=== PATIENT | male | born 1985 | race Caucasian/White ===

== ENCOUNTER 2018-01-24 22:04 | Emergency (ER) | payer OTHER ==
--- NOTE | 2018-01-24 22:16 | EDPHY ---
H & P Stated Complaint: Work inj, L arm laceration, hit with hose Time Seen by Provider: 01/24/18 22:15 HPI/ROS: HPI: This is a 33-year-old male who presents with Chief Complaint: Work injury, L arm laceration, hit with hose Location: Left arm Quality: Injury hit with air hose Duration: Prior to arrival Signs and Symptoms: No bleeding, no radiation, no numbness, no weakness, no tingling, no incontinence, no decreased range of motion, no swelling, + pain, no fever Timing: Acute Severity: Moderate Context: Patient is right-hand dominant, was at work using air hose when he lost control of it and it sprayed his left arm. He is complaining of pain that is moderate and nonradiating in nature. He has not done any local wound care. Denies any radiation, weakness, decreased range of motion. Reports tetanus is current Modifying Factors: Comment: ROS: A comprehensive 10 system review of systems is otherwise negative aside from elements mentioned in the history of present illness. MEDICAL/SURGICAL/SOCIAL HISTORY: Medical history: Generally healthy. Does not take any regular medications. Surgical history: Denies Social history: Never smoked. Employed. CONSTITUTIONAL: Polite and cooperative adult white male, awake and alert, no obvious distress HEENT: Atraumatic and normocephalic. NECK: supple EXTREMITIES: 2/2 pulses, strength 5/5, left upper and lower arm shows conflict went to superficial abrasions covering with only superficial break in the skin; no active bleeding. DIP/PIP/MCP flexion/extension intact with good light touch sensation. no deformities, no clubbing, no cyanosis or edema. NEUROLOGICAL: no focal neuro deficits. GCS 15. Light touch sensation intact. SKIN: Warm and dry, no erythema. no rash. Good capillary refill. Source: Patient Exam Limitations: No limitations - Personal History Current Tetanus Diphtheria and Acellular Pertussis (TDAP): Yes - Medical/Surgical History Hx Asthma: No Hx Chronic Respiratory Disease: No Hx Diabetes: No Hx Cardiac Disease: No Hx Renal Disease: No Hx Cirrhosis: No Hx Alcoholism: No Hx HIV/AIDS: No Hx Splenectomy or Spleen Trauma: No Other PMH: denies - Social History Smoking Status: Never smoked Constitutional: Initial Vital Signs Temperature (C) 36.8 C 01/24/18 22:12 Heart Rate 110 H 01/24/18 22:12 Respiratory Rate 19 01/24/18 22:12 Blood Pressure 154/107 H 01/24/18 22:12 O2 Sat (%) 95 01/24/18 22:12 O2 Delivery Mode Room Air Allergies/Adverse Reactions: No Known Allergies Allergy (Unverified 01/24/18 22:12) Home Medications: Medication Instructions Recorded Cephalexin [Keflex (*)] 500 mg PO TID #21 cap 01/24/18 oxyCODONE/APAP 5/325 [Percocet 1 - 2 tab PO Q4H PRN #10 tab 01/24/18 5/325 (*)] Medical Decision Making ED Course/Re-evaluation: Tetanus is current. Let topical applied, irrigated copiously, bacitracin and nonocclusive dressing applied. Given ibuprofen and Percocet along with Keflex prepack as well as prescription. Verbal and written wound care instructions provided. No signs of neurovascular compromise/tenting of skin/compartment syndrome/ extremities and joints examined above and below area of concern and are neurovascularly intact. This patient was seen under the supervision of my secondary supervising physician. I evaluated care for this patient independently. Discussed this patient with Dr. Berman. Differential Diagnosis: Differential diagnosis includes but is not limited to abrasion, laceration, compartment syndrome. Departure - Departure Disposition: Home, Routine, Self-Care Clinical Impression: Injury by air gun Qualifiers: Encounter type: initial encounter Qualified Code(s): Y24.0XXA - Airgun discharge, undetermined intent, initial encounter Abrasion of arm, left Qualifiers: Encounter type: initial encounter Qualified Code(s): S40.812A - Abrasion of left upper arm, initial encounter Condition: Good Instructions: Abrasion (ED) Additional Instructions: Keep the dressing dry and in place for 48 hours. After 48 hours, you may remove the dressing; wash the site daily with mild soap and water; then pat dry apply topical antibiotic ointment daily and clean sterile dressing until fully healed. Take Tylenol 650 mg every 4 hours and/or Ibuprofen 600 mg every 8 hours with food as needed for pain. Use Percocet every 6 hours as needed for severe/break through pain. Do not use Tylenol and Percocet concomitantly. Apply ice for 30 minutes at a time; 2-3 times per day for the next 1-2 days. Take Keflex as directed until complete. Monitor for signs and symptoms of infection. Return to the ER immediately if you experience redness, red streaks, have fevers /chills, flu like symptoms, limited range of motion, or any other symptoms that concern you. Referrals: Sandeep Ward MD [Primary Care Provider] - As per Instructions Prescriptions: Cephalexin [Keflex (*)] 500 mg PO TID #21 cap oxyCODONE/APAP 5/325 [Percocet 5/325 (*)] 1 - 2 tab PO Q4H PRN #10 tab PRN Reason: Pain, Severe
[2018-01-24] MEDS ORDERED: LIDOCAINE 2% JELLY 20 ML (UROJECT) ONE (22:19)
[2018-01-24] MEDS ORDERED: LIDOCAINE 2% JELLY 20 ML (UROJECT) UR ONE (22:21)
[2018-01-24] MEDS ORDERED: IBUPROFEN 600 MG TAB PO ONE (22:21)
[2018-01-24] MEDS ORDERED: OXYCODONE/APAP 5/325 TAB PO ONE (22:22)
[2018-01-24] MEDS ORDERED: CEPHALEXIN 500MG PREPACK#4 BTL TAKEHOME ONE (22:23)
[2018-01-24 23:25] VITALS: BP 163/115
== END 2018-01-24 23:25 | disposition home or self-care (01) ==
DX: S40.812A Abrasion of left upper arm, initial encounter (principal); W29.8XXA Contact with other powered hand tools and household machinery, initial encounter; Y99.0 Civilian activity done for income or pay